=== PATIENT | female | born 1990 | race Caucasian/White ===

== ENCOUNTER → 2020-08-03 | Outpatient (CLI) | payer SELFPAY ==
[2020-08-03 13:14] VITALS: BMI 21.2
[2020-08-06 15:26] LABS: HPV Reflexed? NOT INDICATED
== END | disposition home or self-care (01) ==
LOC: LABSPEC 16:15
PROVIDERS: PCP Physician Assistant Medical; Referring Provider Nurse Practitioner Women's Health; Visit Provider Nurse Practitioner Women's Health
DX: Z12.4 Encounter for screening for malignant neoplasm of cervix (principal)
CPT/HCPCS: 88175; G0145

== ENCOUNTER → 2020-08-09 09:54 | Outpatient (CLI) | payer SELFPAY ==
[2020-08-03 13:14] VITALS: BMI 21.2
--- NOTE | 2020-08-09 09:56 | US_ITS ---
EXAM: US PELVIS TRANSABDOMINAL AND TRANSVAGINAL, COMPLETE CLINICAL INDICATION: dysmenorrhea TECHNIQUE: Transabdominal and transvaginal pelvic ultrasound was performed with grayscale and color Doppler imaging. Transvaginal imaging was used for better evaluation of the endometrium and adnexa. This report was created using [employer] technology. COMPARISON: None. FINDINGS: UTERUS/CERVIX: 7.5 x 5.9 x 4.7 cm. Endometrial complex measures 11 mm. Anteverted. There is no uterine mass. RIGHT OVARY: 2.5 x 2.2 x 1.9 cm. Blood flow is present in the right ovary. LEFT OVARY: 3.5 x 2.1 x 1.9 cm. Blood flow is present in the left ovary. FREE FLUID: None. BLADDER: Unremarkable as visualized. Wall is normal thickness for degree of distention. US/Transvaginal Non- IMPRESSION: Normal. Electronically Signed: Raul Yeung MD ([facility]) at 15:13 EDT , Service support ,
--- NOTE | 2020-08-09 09:56 | US_ITS ---
EXAM: US PELVIS TRANSABDOMINAL AND TRANSVAGINAL, COMPLETE CLINICAL INDICATION: dysmenorrhea TECHNIQUE: Transabdominal and transvaginal pelvic ultrasound was performed with grayscale and color Doppler imaging. Transvaginal imaging was used for better evaluation of the endometrium and adnexa. This report was created using [employer] technology. COMPARISON: None. FINDINGS: UTERUS/CERVIX: 7.5 x 5.9 x 4.7 cm. Endometrial complex measures 11 mm. Anteverted. There is no uterine mass. RIGHT OVARY: 2.5 x 2.2 x 1.9 cm. Blood flow is present in the right ovary. LEFT OVARY: 3.5 x 2.1 x 1.9 cm. Blood flow is present in the left ovary. FREE FLUID: None. BLADDER: Unremarkable as visualized. Wall is normal thickness for degree of distention. US/Pelvic (Non ) IMPRESSION: Normal. Electronically Signed: Raul Yeung MD ([facility]) at 15:13 EDT , Service support ,
== END ==
PROVIDERS: PCP Nurse Practitioner; Referring Provider Nurse Practitioner Women's Health; Visit Provider Nurse Practitioner Women's Health
DX: N94.6 Dysmenorrhea, unspecified (principal)
CPT/HCPCS: 76830; 76856